=== PATIENT | male | born 1965 | race Two or more races ===

== ENCOUNTER 2017-06-10 13:59 | Outpatient (CLI) | payer OTHER ==
[2017-06-10 18:48] LABS: BASOPHILS % (AUTO) 0.9 %; EOSINOPHILS % (AUTO) 1.2 %; HGB - HEMOGLOBIN 15.8 g/dL (14.0-18.0); MEAN CORPUSCULAR HEMOGLOBIN 28.4 pg (27.0-31.0); MEAN CORPUSCULAR HGB CONC 32.9 g/dL (32.0-36.0); MEAN CORPUSCULAR VOLUME 86.3 fL (80.0-94.0); MEAN PLATELET VOLUME 8.6 fL (7.4-11.4); MONOCYTES % (AUTO) 8.1 %; NEUTROPHILS % (AUTO) 64.8 %; PLT - PLATELET COUNT 266 10^3/uL (130-450); RED BLOOD COUNT 5.55 10^6/uL (4.70-6.10); RED CELL DISTRIBUTION WIDTH 13.6 % (12.0-15.0); WHITE BLOOD COUNT 10.8 x10^3/uL (4.8-10.8)
[2017-06-10 19:02] LABS: HB2 TOTAL 17.2 g/dL; HEMOGLOBIN A1C 1.63 g/dL; HEMOGLOBIN A1C % 10.8 % (4.6-6.2)
[2017-06-10 19:05] LABS: ABNORMAL LYMPHS % (MANUAL) 0 %
[2017-06-10 19:31] LABS: BAND NEUTROPHILS % (MANUAL) 6 %; DIFFERENTIAL COMMENT MANUAL DIFFERENTIAL; LYMPHOCYTES # (MANUAL) 2.7 10^3/uL (1.5-3.5); LYMPHOCYTES % (MANUAL) 25 %; METAMYELOCYTES % (MANUAL) 1 %; MONOCYTES # (MANUAL) 0.4 10^3/uL (0.0-1.0); NEUTROPHILS # (MANUAL) 7.6 10^3/uL (1.5-6.6); NEUTROPHILS % (MANUAL) 64 %; PLATELET ESTIMATE, MANUAL NORMAL (130-450,000) (NORMAL); PLATELET MORPHOLOGY NORMAL APPEARANCE (NORMAL); RBC MORPHOLOGY (MULTIPLE) NORMAL APPEARANCE (NORMAL)
== END 2017-06-10 14:00 | disposition home or self-care (01) ==
LOC: LAB.N 13:59
PROVIDERS: ATTEND Physician Assistant Medical
DX: E11.65 Type 2 diabetes mellitus with hyperglycemia (principal); E78.5 Hyperlipidemia, unspecified; E66.9 Obesity, unspecified
CPT/HCPCS: 36415; 80048; 82043; 83036; 85025

== ENCOUNTER 2018-03-24 07:28 | Outpatient (CLI) | payer OTHER ==
[2018-03-24 13:13] LABS: CHOL/HDL RATIO 3.7 (<5.0); CHOLESTEROL 118 mg/dL; HDL CHOLESTEROL 32 mg/dL; LDL CHOLESTEROL,CALCULATED 59 mg/dL; LDL/HDL RATIO 1.8 (<3.6); VLDL CHOLESTEROL 27 mg/dL
[2018-03-24 13:36] LABS: HEMOGLOBIN A1C 1.28 g/dL
== END 2018-03-24 07:29 | disposition home or self-care (01) ==
LOC: LAB.N 07:28
PROVIDERS: ATTEND Nurse Practitioner
DX: M10.9 Gout, unspecified (principal); Z68.42 Body mass index [BMI] 45.0-49.9, adult; E78.5 Hyperlipidemia, unspecified; E11.65 Type 2 diabetes mellitus with hyperglycemia; R73.9 Hyperglycemia, unspecified; E66.9 Obesity, unspecified; R03.0 Elevated blood-pressure reading, without diagnosis of hypertension
CPT/HCPCS: 36415; 80061; 83036; 83721; 84550

== ENCOUNTER 2018-11-22 00:56 | Emergency (ER) | payer OTHER ==
[2018-11-22] MEDS ORDERED: SODIUM CHLORIDE 0.9% 1,000 ML IV ONE (01:42)
[2018-11-22] MEDS ORDERED: KETOROLAC 30 MG/ML VIAL IVP STA (01:43)
[2018-11-22 02:08] LABS: BILIRUBIN,URINE NEGATIVE (NEGATIVE); GLUCOSE, URINE (UA) NEGATIVE (NEGATIVE); KETONES,URINE (UA) NEGATIVE (NEGATIVE); LEUKOCYTE ESTERASE, URINE NEGATIVE (NEGATIVE); NITRITE,URINE NEGATIVE (NEGATIVE); OCCULT BLOOD,URINE TRACE-INTA (NEGATIVE); PROTEIN,URINE NEGATIVE (NEGATIVE); UROBILINOGEN,URINE 0.2 (NORMAL) E.U./dL (NORMAL)
[2018-11-22 02:10] LABS: CLARITY,URINE CLEAR (CLEAR)
[2018-11-22] MEDS ORDERED: CETIRIZINE 10 MG TABLET PO STA (02:17)
[2018-11-22] MEDS ORDERED: DEXAMETHASONE 10 MG/ML VIAL IVP STA (02:17)
[2018-11-22] MEDS ORDERED: diphenhydrAMINE INJ 50 MG/ML VIAL IVP STA (02:21)
[2018-11-22 02:24] LABS: BASOPHILS % (AUTO) 0.4 %; EOSINOPHILS # (AUTO) 0.2 10^3/uL (0.0-0.7); EOSINOPHILS % (AUTO) 2.8 %; HGB - HEMOGLOBIN 13.8 g/dL (14.0-18.0); LYMPHOCYTES # (AUTO) 1.8 10^3/uL (1.5-3.5); LYMPHOCYTES % (AUTO) 32.1 %; MEAN CORPUSCULAR HEMOGLOBIN 28.2 pg (27.0-31.0); MEAN CORPUSCULAR HGB CONC 32.2 g/dL (32.0-36.0); MEAN CORPUSCULAR VOLUME 87.6 fL (80.0-94.0); MEAN PLATELET VOLUME 9.4 fL (7.4-11.4); MONOCYTES # (AUTO) 0.4 10^3/uL (0.0-1.0); MONOCYTES % (AUTO) 6.2 %; NEUTROPHILS # (AUTO) 3.3 10^3/uL (1.5-6.6); PLT - PLATELET COUNT 281 10^3/uL (130-450); RED CELL DISTRIBUTION WIDTH 12.5 % (12.0-15.0); WHITE BLOOD COUNT 5.6 x10^3/uL (4.8-10.8)
[2018-11-22 03:01] LABS: KETONES, SERUM (ACETEST) NEGATIVE (NEGATIVE)
[2018-11-22 03:08] LABS: ALBUMIN 3.4 g/dL (3.2-5.5); ALBUMIN/GLOBULIN RATIO 0.8 (1.0-2.2); ALKALINE PHOSPHATASE 69 IU/L (42-121); ALT ALANINE AMINOTRANSFERASE 17 IU/L (10-60); AST ASPARTATE AMINOTRANSFERASE 18 IU/L (10-42); BILIRUBIN,TOTAL 0.4 mg/dL (0.2-1.0); BUN - BLOOD UREA NITROGEN 20 mg/dL (6-20); CALCIUM 8.8 mg/dL (8.5-10.3); CARBON DIOXIDE - CO2 25 mmol/L (21-32); CHLORIDE 102 mmol/L (101-111); CK- CREATINE KINASE 59 IU/L (22-269); GFR - MDRD 78 (>89); GLUCOSE 153 mg/dL (70-100); LIPASE 28 U/L (22-51); MAGNESIUM 1.7 mg/dL (1.7-2.8); SODIUM 136 mmol/L (135-145); TOTAL PROTEIN 7.9 g/dL (6.7-8.2)
--- NOTE | 2018-11-22 03:23 | ED Physician Documentation ---
PD NANCY HEENT - Stated complaint Stated Complaint: EAR PX/JOINT PX/ITCHY - Chief complaint Chief Complaint: Heent - History obtained from History obtained from: Patient - History of Present Illness Timing - onset: How many months ago (2) Timing - duration: Months (2) Timing - details: Gradual onset (He states he has been having pain in his joints in the hands and pain in the muscles of his thighs and lower legs gradually onset almost 2 months ago with waxing and waning degree of symptoms and then more consistent the last 2 to 3 weeks. He has had some congestion and feeling of pressure in his ears. He has been having some itching of his skin and hive type rash the last week or 2 as well. He been seen at a medical clinic in [place] where he has been in the last 5 or 6 months. He states he had blood test done there that did not show any obvious acute process. He was treated with he believes an antibiotic I presume for his ear. He has not had that now for a month or so. He had not been prescribed other medicines. He has returned from [place] just today and his brought him from the airport to the ER here to evaluate for the symptoms.), Still present Location: Left ear, Other (He has had some runny nose and congestion and at times feels pressure in his left ear.) Improves: No: Medication Associated symptoms: No: Fever, Facial swelling, Headache, Cough Similar symptoms before: Has not had sx before Recently seen: Clinic (in [place], and had blood tests done, but not sure what.) Review of Systems Constitutional: reports: Myalgias (Very sore muscles of the thighs and calves as well as the forearms to the point of difficulty walking and holding things the last several days to week.). denies: Fever, Chills Eyes: denies: Photophobia Ears: denies: Loss of hearing, Drainage/discharge, Tinnitus/ringing Nose: reports: Congestion. denies: Rhinorrhea / runny nose, Sinus pressure / pain Throat: denies: Sore throat Respiratory: denies: Dyspnea, Cough GI: reports: Nausea. denies: Abdominal Pain, Vomiting, Diarrhea Skin: reports: Rash (hives type rash intermittently, with itching consistently). denies: Lesions Musculoskeletal: reports: Back pain, Extremity pain (diffusely). denies: Neck pain Neurologic: denies: Focal weakness, Numbness, Near syncope, Altered mental status, Headache Endocrine: denies: Weight loss PD PAST MEDICAL HISTORY - Past Medical History Past Medical History: Yes Cardiovascular: Hypertension, High cholesterol Respiratory: None Neuro: None Endocrine/Autoimmune: Type 2 diabetes GI: None : None HEENT: None Psych: None Musculoskeletal: Gout - Past Surgical History Past Surgical History: Yes Ortho: ACL reconstruction HEENT: Tonsil/Adenoidectomy - Present Medications Home Medications: Ambulatory Orders Medication Instructions Recorded Confirmed Metformin HCl 1,000 mg PO BID 04/18/14 03/13/15 Atorvastatin [Lipitor] 40 mg PO DAILY 01/17/15 03/13/15 Hydrocodone/Acetaminophen [[place] 1 each PO Q6H PRN #20 tablet 03/13/15 5-325 Tablet] predniSONE [Deltasone] 60 mg PO DAILY 5 Days tablet 03/13/15 Cetirizine [ZyrTEC] 10 mg PO DAILY #15 tablet 11/22/18 Hydrocodone/Acetaminophen [[place] 1 each PO Q6H PRN #20 tablet 11/22/18 5-325 Tablet] dexAMETHasone [Decadron] 4 mg PO DAILY #10 tablet 11/22/18 hydrOXYzine HCl [Hydroxyzine HCl] 50 mg PO Q6H PRN #15 tablet 11/22/18 - Allergies Allergies/Adverse Reactions: Allergies Allergy/AdvReac Type Severity Reaction Status Date / Time No Known Drug Allergies Allergy Verified 11/22/18 01:04 - Social History Does the pt smoke?: No Smoking Status: Never smoker Does the pt drink ETOH?: No Does the pt have substance abuse?: No - Immunizations Immunizations are current?: Yes - POLST Patient has POLST: No PD ED PE NORMAL - Vitals Vital signs reviewed: Yes - General General: Alert and oriented X 3, Well developed/nourished, Other (appears uncomfortable due to itchiness and also due to muscle pains and hand pains. ) - HEENT HEENT: Pharynx benign (no edema). No: Ears normal (right is normal. Left has some fluid behind it without redness nor discharge. ) - Neck Neck: Supple, no meningeal sign, No adenopathy - Cardiac Cardiac: RRR, No murmur - Respiratory Respiratory: Clear bilaterally - Abdomen Abdomen: Soft, Non tender - Back Back: No CVA TTP - Derm Derm: Normal color, Warm and dry - Extremities Extremities: No edema, No calf tenderness / cord, Other (blotchy hives type rash on legs and back. ) - Neuro Neuro: Alert and oriented X 3, No motor deficit, Normal speech Results - Vitals Vitals: Vital Signs - 24 hr 11/22/18 11/22/18 00:59 03:31 Temperature 36.3 C L Heart Rate 98 72 Respiratory 16 18 Rate Blood Pressure 143/95 H 124/86 H O2 Saturation 99 97 Oxygen O2 Source Room air - Labs Labs: Laboratory Tests 11/22/18 11/22/18 11/22/18 02:00 02:17 02:17 WBC 5.6 RBC 4.90 Hgb 13.8 L Hct 42.9 MCV 87.6 MCH 28.2 MCHC 32.2 RDW 12.5 Plt Count 281 MPV 9.4 Neut # (Auto) 3.3 Lymph # (Auto) 1.8 [place] # (Auto) 0.4 Eos # (Auto) 0.2 Baso # (Auto) 0.0 Absolute Nucleated RBC 0.00 Nucleated RBC % 0.0 ESR 42 H Sodium Potassium Chloride Carbon Dioxide Anion Gap BUN Creatinine Estimated GFR (MDRD) Glucose Lactic Acid Calcium Magnesium Total Bilirubin AST ALT Alkaline Phosphatase Total Creatine Kinase Total Protein Albumin Globulin Albumin/Globulin Ratio Lipase Urine Color YELLOW Urine Clarity CLEAR Urine pH 5.0 Ur Specific [place] >=1.030 H Urine Protein NEGATIVE Urine Glucose (UA) NEGATIVE Urine Ketones NEGATIVE Urine Occult Blood TRACE-INTA Urine Nitrite NEGATIVE Urine Bilirubin NEGATIVE Urine Urobilinogen 0.2 (NORMAL) Ur Leukocyte Esterase NEGATIVE Ur Microscopic Review NOT INDICATED Urine Culture Comments NOT INDICATED Serum Ketones Rheumatoid Factor 11/22/18 11/22/18 11/22/18 02:50 02:50 03:45 WBC RBC Hgb Hct MCV MCH MCHC RDW Plt Count MPV Neut # (Auto) Lymph # (Auto) [place] # (Auto) Eos # (Auto) Baso # (Auto) Absolute Nucleated RBC Nucleated RBC % ESR Sodium 136 Potassium 4.2 Chloride 102 Carbon Dioxide 25 Anion Gap 9.0 BUN 20 Creatinine 1.0 Estimated GFR (MDRD) 78 L Glucose 153 H Lactic Acid 1.1 Calcium 8.8 Magnesium 1.7 Total Bilirubin 0.4 AST 18 ALT 17 Alkaline Phosphatase 69 Total Creatine Kinase 59 Total Protein 7.9 Albumin 3.4 Globulin 4.5 H Albumin/Globulin Ratio 0.8 L Lipase 28 Urine Color Urine Clarity Urine pH Ur Specific [place] Urine Protein Urine Glucose (UA) Urine Ketones Urine Occult Blood Urine Nitrite Urine Bilirubin Urine Urobilinogen Ur Leukocyte Esterase Ur Microscopic Review Urine Culture Comments Serum Ketones NEGATIVE Rheumatoid Factor NEGATIVE PD MEDICAL DECISION MAKING - ED course Complexity details: reviewed results, considered differential (uncertain cause. Symptoms sound like allergic reaction with hives and general myalgias and general weakness. However not clear what he would be allergic to. He had been in [facility] for several months and is having muscle aches but not necessarily back pain per se. Consider possibility of dengue fever. He really has not had fevers per se though. The muscle aches particularly of the thigh and also the calves could relate to the statin cholesterol medication needs takes. This may not initially be the primary cause but could have been triggered by another immune related or allergy related process.), d/w patient Departure - Departure Disposition: 01 Home, Self Care Clinical Impression: Myalgia, Myalgia due to statin Allergic reaction Qualifiers: Encounter type: initial encounter Qualified Code(s): T78.40XA - Allergy, unspecified, initial encounter Condition: Stable Record reviewed to determine appropriate education?: Yes Instructions: ED Muscle Aching, ED Myositis Follow-Up: Karlo Barton PA-C [Primary Care Provider] - Prescriptions: Cetirizine [ZyrTEC] 10 mg PO DAILY #15 tablet dexAMETHasone [Decadron] 4 mg PO DAILY #10 tablet Hydrocodone/Acetaminophen [[place] 5-325 Tablet] 1 each PO Q6H PRN #20 tablet PRN Reason: Pain hydrOXYzine HCl [Hydroxyzine HCl] 50 mg PO Q6H PRN #15 tablet PRN Reason: Itching Comments: Your basic blood tests here show an elevation of an inflammation marker called the ESR (sedimentation rate). This is a not very specific test but does indicate some inflammation going on in the body. This can be allergic reaction or inflammation within the muscles. Among other things. I have been considering the possibility that you may have a general allergic reaction given the hive type rash and congestion. This may have also triggered an inflammatory response in your muscles from the statin cholesterol medication. I would treat this with some antihistamine of cetirizine daily for a couple of weeks and a steroid Decadron for the next week and a half. Add Benadryl or hydroxyzine if needed for itchiness. Add Tylenol or hydrocodone if needed for pains. I would stop your cholesterol medicine for at least a month. See if you are i mproving over the next few days to week. Follow-up with your primary care regarding any further treatment or evaluation and to follow-up on the blood tests that did not result here tonight. They should be available over the next couple of days. Discussed with your primary care whether to resume your cholesterol medicine in a month or 2 if you are fully better and see if you develop any muscle aches again. Discharge Date/Time: 11/22/18 03:50
[2018-11-22 03:32] VITALS: BP 124/86
[2018-11-22 04:07] LABS: RHEUMATOID FACTOR NEGATIVE (Negative)
[2018-11-24 22:42] LABS: ANA SCREEN NEGATIVE (NEGATIVE)
== END 2018-11-22 03:50 | disposition home or self-care (01) ==
LOC: ED 00:56
DX: M79.10 Myalgia, unspecified site (principal); L50.9 Urticaria, unspecified; T50.995A Adverse effect of other drugs, medicaments and biological substances, initial encounter; T78.40XA Allergy, unspecified, initial encounter; I10 Essential (primary) hypertension; E11.9 Type 2 diabetes mellitus without complications; Z79.84 Long term (current) use of oral hypoglycemic drugs
CPT/HCPCS: 36415; 80053; 81003; 82009; 82550; 83605; 83690; 83735; 85025; 85651; 86038; 86430; 96361; 96374; 96375; 99283; A9270; J1200; 81001; 87086

== ENCOUNTER 2018-11-28 08:00 | Outpatient (CLI) | payer OTHER ==
[2018-11-28 19:14] LABS: BASOPHILS # (AUTO) 0.1 10^3/uL (0.0-0.1); BASOPHILS % (AUTO) 0.6 %; EOSINOPHILS # (AUTO) 0.1 10^3/uL (0.0-0.7); EOSINOPHILS % (AUTO) 1.2 %; HGB - HEMOGLOBIN 14.9 g/dL (14.0-18.0); LYMPHOCYTES # (AUTO) 1.4 10^3/uL (1.5-3.5); LYMPHOCYTES % (AUTO) 13.1 %; MEAN CORPUSCULAR HEMOGLOBIN 28.4 pg (27.0-31.0); MEAN CORPUSCULAR HGB CONC 32.3 g/dL (32.0-36.0); MEAN CORPUSCULAR VOLUME 88.2 fL (80.0-94.0); MEAN PLATELET VOLUME 9.6 fL (7.4-11.4); MONOCYTES # (AUTO) 0.5 10^3/uL (0.0-1.0); MONOCYTES % (AUTO) 4.9 %; NEUTROPHILS # (AUTO) 8.4 10^3/uL (1.5-6.6); NEUTROPHILS % (AUTO) 78.7 %; PLT - PLATELET COUNT 344 10^3/uL (130-450); RED BLOOD COUNT 5.24 10^6/uL (4.70-6.10); RED CELL DISTRIBUTION WIDTH 12.6 % (12.0-15.0); WHITE BLOOD COUNT 10.7 x10^3/uL (4.8-10.8)
[2018-11-28 19:17] LABS: ALBUMIN 3.6 g/dL (3.2-5.5); ALBUMIN/GLOBULIN RATIO 0.8 (1.0-2.2); ALKALINE PHOSPHATASE 73 IU/L (42-121); ALT ALANINE AMINOTRANSFERASE 19 IU/L (10-60); AST ASPARTATE AMINOTRANSFERASE 16 IU/L (10-42); BILIRUBIN,TOTAL 0.8 mg/dL (0.2-1.0); BUN - BLOOD UREA NITROGEN 19 mg/dL (6-20); CALCIUM 9.1 mg/dL (8.5-10.3); CARBON DIOXIDE - CO2 27 mmol/L (21-32); CHLORIDE 97 mmol/L (101-111); CREATININE 0.9 mg/dL (0.6-1.2); GFR - MDRD 88 (>89); GLUCOSE 222 mg/dL (70-100); SODIUM 136 mmol/L (135-145); TOTAL PROTEIN 8.2 g/dL (6.7-8.2); URIC ACID 7.2 mg/dL (2.6-7.2)
[2018-11-28 19:18] LABS: CRP - C-REACTIVE PROTEIN < 1.0 mg/dL (0-1.0)
[2018-11-28 19:19] LABS: HB2 TOTAL 15.4 g/dL; HEMOGLOBIN A1C 1.31 g/dL; HEMOGLOBIN A1C % 9.9 % (4.6-6.2)
[2018-11-28 19:37] LABS: FOLATE 6.39 ng/mL (5.90 - >24.8)
== END 2018-11-28 23:59 | disposition home or self-care (01) ==
LOC: LAB.N 08:00
PROVIDERS: ATTEND Physician Assistant Medical
DX: M25.50 Pain in unspecified joint (principal); M79.10 Myalgia, unspecified site; E11.65 Type 2 diabetes mellitus with hyperglycemia
CPT/HCPCS: 36415; 80053; 82607; 82746; 83036; 84443; 84550; 85025; 86140

== ENCOUNTER 2018-12-06 14:55 | Outpatient (CLI) | payer OTHER ==
--- NOTE | 2018-12-07 21:17 | XRAY Report ---
Reason: UNINTENTIONAL WEIGHT LOSS Procedure Date: 12/06/2018 Accession Number: [id number] / [id number] Procedure: XRN - Chest 2 View X-Ray CPT Code: 26863 FULL RESULT: EXAM: CHEST RADIOGRAPHY EXAM DATE: 12/06/2018 03:08 PM. CLINICAL HISTORY: UNINTENTIONAL WEIGHT LOSS. COMPARISON: CHEST 2 VIEW PA/LAT 04/26/2013 6:17 PM. TECHNIQUE: 2 views. FINDINGS: Lungs/Pleura: No focal opacities evident. No pleural effusion. No pneumothorax. Normal volumes. Mediastinum: Heart and mediastinal contours are unremarkable. Other: Diffuse idiopathic skeletal hyperostosis. IMPRESSION: No acute radiographic cardiopulmonary process RADIA
== END 2018-12-06 14:56 | disposition home or self-care (01) ==
LOC: DI.N 14:55
PROVIDERS: ATTEND Physician Assistant Medical
DX: M79.10 Myalgia, unspecified site (principal); R63.4 Abnormal weight loss; M25.50 Pain in unspecified joint
CPT/HCPCS: 71046

== ENCOUNTER 2019-05-11 07:14 | Outpatient (CLI) | payer OTHER ==
[2019-05-11 12:49] LABS: HB2 TOTAL 17.7 g/dL; HEMOGLOBIN A1C 1.36 g/dL; HEMOGLOBIN A1C % 9.2 % (4.6-6.2)
== END 2019-05-11 23:59 | disposition home or self-care (01) ==
LOC: LAB.N 07:14
PROVIDERS: ATTEND Physician Assistant Medical
DX: E11.65 Type 2 diabetes mellitus with hyperglycemia (principal)
CPT/HCPCS: 36415; 83036

== ENCOUNTER 2020-11-21 07:53 | Emergency (ER) | payer OTHER ==
[2020-11-21 08:50] LABS: BASOPHILS % (AUTO) 0.4 %; EOSINOPHILS # (AUTO) 0.1 10^3/uL (0.0-0.7); EOSINOPHILS % (AUTO) 2.7 %; HCT - HEMATOCRIT 52.1 % (42.0-52.0); HGB - HEMOGLOBIN 17.5 g/dL (14.0-18.0); LYMPHOCYTES # (AUTO) 1.3 10^3/uL (1.5-3.5); MEAN CORPUSCULAR HEMOGLOBIN 29.1 pg (27.0-31.0); MEAN CORPUSCULAR HGB CONC 33.6 g/dL (32.0-36.0); MEAN CORPUSCULAR VOLUME 86.5 fL (80.0-94.0); MEAN PLATELET VOLUME 10.2 fL (7.4-11.4); MONOCYTES # (AUTO) 0.5 10^3/uL (0.0-1.0); MONOCYTES % (AUTO) 10.9 %; NEUTROPHILS # (AUTO) 2.5 10^3/uL (1.5-6.6); NEUTROPHILS % (AUTO) 56.3 %; PLT - PLATELET COUNT 146 10^3/uL (130-450); RED BLOOD COUNT 6.02 10^6/uL (4.70-6.10); WHITE BLOOD COUNT 4.5 x10^3/uL (4.8-10.8)
[2020-11-21 09:02] LABS: ALBUMIN/GLOBULIN RATIO 0.9 (1.0-2.2); BILIRUBIN,TOTAL 1.3 mg/dL (0.2-1.0); CALCIUM 8.7 mg/dL (8.5-10.3); CREATININE 0.9 mg/dL (0.6-1.2); POTASSIUM 3.7 mmol/L (3.5-5.0); TOTAL PROTEIN 8.6 g/dL (6.7-8.2)
--- NOTE | 2020-11-21 09:14 | XRAY Report ---
PROCEDURE: Chest 1 View X-Ray INDICATIONS: cough TECHNIQUE: One view of the chest was acquired. COMPARISON: 12/06/2018 FINDINGS: Surgical changes and devices: None. Lungs and pleura: No pleural effusions or pneumothorax. Lungs are clear. Mediastinum: Mediastinal contours appear normal. Heart size is normal. Bones and chest wall: No suspicious bony lesions. Overlying soft tissues appear unremarkable. IMPRESSION: 1. No acute cardiopulmonary disease. Reviewed by: Tayo Stringer MD on 11/21/2020 9:13 AM PDT Approved by: Tayo Stringer MD on 11/21/2020 9:13 AM PDT Station ID: [id number]
--- NOTE | 2020-11-21 09:18 | ED Physician Documentation ---
PD HPI URI - Stated complaint Stated Complaint: NAUSEA/COUGH/HEADACHE - Chief complaint Chief Complaint: Fever - History obtained from History obtained from: Patient - History of Present Illness Timing - onset: How many weeks ago (1) Timing duration: Weeks (1) Timing details: Gradual onset, Still present Associated symptoms: Fever, Chills, Nasal congestion, Rhinorrhea, Dry cough, Dyspnea Contributing factors: Sick contact Improves by: Rest, Medication Worsened by: Activity Similar symptoms before: Diagnosis (uri) Recently seen: Not recently seen - Additional information Additional information: 55-year-old male complains of a 1 week history of cough fever body aches and congestion and he is unvaccinated. Review of Systems Constitutional: reports: Fever, Chills, Myalgias, Fatigue, Sweats Eyes: denies: Decreased vision Ears: denies: Ear pain Nose: reports: Rhinorrhea / runny nose, Congestion Throat: denies: Sore throat Cardiac: denies: Chest pain / pressure, Palpitations Respiratory: reports: Dyspnea, Cough, Wheezing GI: denies: Abdominal Pain, Vomiting Skin: denies: Rash Musculoskeletal: denies: Neck pain, Back pain, Extremity pain Neurologic: reports: Generalized weakness. denies: Focal weakness, Numbness PD PAST MEDICAL HISTORY - Past Medical History Past Medical History: Yes Cardiovascular: Hypertension, High cholesterol Respiratory: None Neuro: None Endocrine/Autoimmune: Type 2 diabetes GI: None : None HEENT: None Psych: None Musculoskeletal: Gout - Past Surgical History Past Surgical History: Yes Ortho: ACL reconstruction HEENT: Tonsil/Adenoidectomy - Present Medications Home Medications: Ambulatory Orders Medication Instructions Recorded Confirmed Metformin HCl 1,000 mg PO BID 04/18/14 03/13/15 Atorvastatin [Lipitor] 40 mg PO DAILY 01/17/15 03/13/15 Hydrocodone/Acetaminophen [[place] 1 each PO Q6H PRN #20 tablet 03/13/15 5-325 Tablet] predniSONE [Deltasone] 60 mg PO DAILY 5 Days tablet 03/13/15 Cetirizine [ZyrTEC] 10 mg PO DAILY #15 tablet 11/22/18 Hydrocodone/Acetaminophen [[place] 1 each PO Q6H PRN #20 tablet 11/22/18 5-325 Tablet] dexAMETHasone [Decadron] 4 mg PO DAILY #10 tablet 11/22/18 hydrOXYzine HCL [Hydroxyzine HCl] 50 mg PO Q6H PRN #15 tablet 11/22/18 Azithromycin [Zithromax] 250 mg PO DAILY #6 tablet 11/21/20 - Allergies Allergies/Adverse Reactions: Allergies Allergy/AdvReac Type Severity Reaction Status Date / Time No Known Drug Allergies Allergy Verified 11/21/20 08:10 - Social History Does the pt smoke?: No Smoking Status: Never smoker Does the pt drink ETOH?: No Does the pt have substance abuse?: No - Immunizations Immunizations are current?: Yes - POLST Patient has POLST: No PD ED PE NORMAL - Vitals Vital signs reviewed: Yes (Tachycardic and hypertensive) - General General: Alert and oriented X 3, No acute distress, Well developed/nourished, Other (55-year-old male with a body mass index of 43 appears in no distress.) - HEENT HEENT: Atraumatic, PERRL, EOMI, Moist mucous membranes, Pharynx benign, Dentition benign, Other (Erythema to right TM along the umbo especially without significant distortion of the landmarks) - Neck Neck: Supple, no meningeal sign, No bony TTP - Cardiac Cardiac: RRR, No murmur - Respiratory Respiratory: No respiratory distress, Clear bilaterally - Abdomen Abdomen: Normal bowel sounds, Soft, Non tender, Non distended, No organomegaly - Back Back: No CVA TTP, No spinal TTP - Derm Derm: Normal color, Warm and dry, No rash - Extremities Extremities: No deformity, No edema - Neuro Neuro: Alert and oriented X 3, 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, No motor deficit, No sensory deficit, Normal speech Eye Opening: Spontaneous Motor: Obeys Commands Verbal: Oriented GCS Score: 15 - Psych Psych: Normal mood, Normal affect Results - Vitals Vitals: Vital Signs - 24 hr 11/21/20 11/21/20 08:08 10:10 Temperature 37.2 C 36.7 C Heart Rate 107 H 100 Respiratory 20 18 Rate Blood Pressure 166/96 H 128/88 H O2 Saturation 95 93 Oxygen O2 Source Room air - Labs Labs: Laboratory Tests 11/21/20 11/21/20 11/21/20 08:15 08:45 08:45 WBC 4.5 L RBC 6.02 Hgb 17.5 Hct 52.1 H MCV 86.5 MCH 29.1 MCHC 33.6 RDW 12.0 Plt Count 146 MPV 10.2 Neut # (Auto) 2.5 Lymph # (Auto) 1.3 L [place] # (Auto) 0.5 Eos # (Auto) 0.1 Baso # (Auto) 0.0 Absolute Nucleated RBC 0.00 Nucleated RBC % 0.0 Sodium 131 L Potassium 3.7 Chloride 96 L Carbon Dioxide 23 Anion Gap 12.0 BUN 14 Creatinine 0.9 Estimated GFR (MDRD) 87 L Glucose 271 H Calcium 8.7 Total Bilirubin 1.3 H AST 35 ALT 34 Alkaline Phosphatase 62 Total Protein 8.6 H Albumin 4.0 Globulin 4.6 H Albumin/Globulin Ratio 0.9 L Lipase 29 Nasal Adenovirus (PCR) NOT DETECTED Nasal B. parapertussis DNA (PCR) NOT DETECTED Nasal Coronavir 229E PCR NOT DETECTED Nasal Coronavir HKU1 PCR NOT DETECTED Nasal Coronavir NL63 PCR NOT DETECTED Nasal Coronavir OC43 PCR NOT DETECTED Nasal Enterovir/Rhinovir PCR NOT DETECTED Nasal Influenza B PCR NOT DETECTED Nasal Influenza A PCR NOT DETECTED Nasal Parainfluen 1 PCR NOT DETECTED Nasal Parainfluen 2 PCR NOT DETECTED Nasal Parainfluen 3 PCR NOT DETECTED Nasal Parainfluen 4 PCR NOT DETECTED Nasal RSV (PCR) NOT DETECTED Nasal B.pertussis DNA PCR NOT DETECTED Nasal C.pneumoniae (PCR) NOT DETECTED Quiana Human Metapneumo PCR NOT DETECTED Nasal M.pneumoniae (PCR) NOT DETECTED Nasal SARS-CoV-2 (PCR) DETECTED A - Rads (name of study) chest Radiology: Prelim report reviewed (Impression:. No acute cardiopulmonary disease.), EMP read indepedently, See rad report PD MEDICAL DECISION MAKING - ED course Complexity details: reviewed results, re-evaluated patient, considered differential, d/w patient ED course: 55-year-old male is contracted Covid and he does not have pneumonia on his chest x-ray he does have a body mass index of 43 and he is 7 days into his symptoms. He has consented to the use of monoclonal antibody for treatment of Covid. On examination he does have some erythema to his TMs bilaterally worse on the right than the left. He has had otitis previously. This is treated in addition to administration of the Covid antibody. Here in the emergency department he is given a single dose of dexamethasone and we will put him on a course of a azithromycin. Departure - Departure Disposition: 01 Home, Self Care Clinical Impression: COVID Otitis media Qualifiers: Otitis media type: suppurative Chronicity: acute Laterality: right Recurrence: not specified as recurrent Spontaneous tympanic membrane rupture: without spontaneous rupture Qualified Code(s): H66.001 - Acute suppurative otitis media without spontaneous rupture of ear drum, right ear Condition: Stable Instructions: ED Otitis Media Acute Adult, COVID-19 [facility], Flu and Cold: Nutrition, Prevention and Treatment Tips Follow-Up: QUIANA Genao [Provider Group] Prescriptions: Azithromycin [Zithromax] 250 mg PO DAILY #6 tablet
[2020-11-21 09:33] LABS: CORONAVIRUS 229E-RESP PCR NOT DETECTED; CORONAVIRUS HKU1-RESP PCR NOT DETECTED; CORONAVIRUS NL63-RESP PCR NOT DETECTED
[2020-11-21 09:34] LABS: CORONAVIRUS OC43-RESP PCR NOT DETECTED
[2020-11-21 09:36] LABS: B. PARAPERTUSSIS- RESP PCR PAN NOT DETECTED; B. PERTUSSIS- RESP PCR PANEL NOT DETECTED; C. PNEUMONIAE- RESP PCR PANEL NOT DETECTED; HUMAN METAPNEUMOVIRUS NOT DETECTED; INFLUENZA A- RESP PCR PANEL NOT DETECTED; INFLUENZA B - RESP PCR PANEL NOT DETECTED; M. PNEUMONIAE- RESP PCR PANEL NOT DETECTED; PARAINFLUENZA VIRUS 1 NOT DETECTED; PARAINFLUENZA VIRUS 2 NOT DETECTED; PARAINFLUENZA VIRUS 3 NOT DETECTED; PARAINFLUENZA VIRUS 4 NOT DETECTED; RHINOVIRUS/ENTEROVIRUS NOT DETECTED; RSV- RESP PCR PANEL NOT DETECTED; SARS-CoV-2 -RESP PCR PANEL DETECTED
[2020-11-21] MEDS ORDERED: CASIRIVIMAB/IMDEVIMAB 10 ML in SODIUM CHLORIDE 0.9% 50 ML IV ONE (10:10)
[2020-11-21] MEDS ORDERED: DEXAMETHASONE 10 MG/ML VIAL PO STA (11:05)
[2020-11-21] MEDS ORDERED: CHERRY SYRUP 10 ML UDC PO ONE (11:05)
[2020-11-21 11:43] VITALS: BP 144/87
== END 2020-11-21 12:05 | disposition home or self-care (01) ==
LOC: ED 07:53
DX: U07.1 COVID-19 (principal); H66.001 Acute suppurative otitis media without spontaneous rupture of ear drum, right ear; Z68.41 Body mass index [BMI] 40.0-44.9, adult; I10 Essential (primary) hypertension; E11.9 Type 2 diabetes mellitus without complications; Z79.84 Long term (current) use of oral hypoglycemic drugs
CPT/HCPCS: 0202U; 36415; 71045; 80053; 83690; 85025; 99283; 99284; A9270; J7040; M0243; Q0244